=== PATIENT | female | born 1935 | race Caucasian/White ===

== ENCOUNTER 2023-02-24 13:00 | Outpatient (RCR) | payer MEDICARE, BC, SELFPAY | END 2023-06-17 23:59 | disposition home or self-care (01) | PROVIDERS: PCP Family Medicine; Visit Provider Family Medicine | DX: R41.82 Altered mental status, unspecified (principal); Z51.89 Encounter for other specified aftercare | CPT/HCPCS: 97165; 97535 ==

== ENCOUNTER 2024-02-16 05:16 | Emergency (ER) | payer MEDICARE, BC, SELFPAY ==
[2024-02-16] VITALS (19 sets, daily range): BP systolic 150–171; BP diastolic 71–103; PULSE 66–86; RESP 16; TEMP 35.9; O2SAT 93–97; BMI 25.8
--- NOTE | 2024-02-16 05:44 | XR_ITS ---
Patient: GIOVANY STONE Facility:?[facility] Patient ID:?[id number] Site Patient ID:?[id number]. Site :?[id number] Study:?XRay-Chest PA AND LATERAL-02/16/2024 6:28:48 AM Ordering Physician:rose Final Report: INDICATION: : Left posterior chest pain TECHNIQUE: PA and lateral 2 view chest COMPARISON: None FINDINGS: Lung volumes are good. No focal or diffuse opacities. No pleural effusion. No pneumothorax. Heart size is normal. Atherosclerotic calcifications of the thoracic aorta. Normal upper mediastinal contours. Degenerative changes of the spine commensurate with age. IMPRESSION: Lungs clear. Atherosclerotic vascular calcifications. Dictated by Rianna De La Paz MD @ 02/16/2024 6:44:17 AM Signed by:?Rianna De La Paz MD @02/16/2024 6:44:17 AM (Electronic Signature)
--- NOTE | 2024-02-16 05:54 | ED_ITS ---
HPI - General Adult General Chief complaint: Back Injury/Pain Stated complaint: L side chest / back pain Time Seen by Provider: 02/16/24 05:32 Source: patient and family Mode of arrival: ambulatory History of Present Illness HPI narrative: 88-year-old female presents to the emergency department with spouse. She has had pain in the left posterior lower rib area for the past couple of nights intermittently, radiating down to the lower back a little bit today. reporting that once she said it wrapped around to the front of the chest but she denies that today. It is not accompanied by shortness of breath. They have both had a nonproductive cough for the last couple of days but no fever. No pertinent travel. She has not tried any medication to help with her symptoms. She denies any history of cardiac problems, coronary artery disease, AFib or prior interventions. Has not tried any pain medication to help with her symptoms. No abdominal pain, nausea or bloody stools. No dysuria. No rash. Cannot think of any alleviating or exacerbating factors. Intermittent pain. Rates as a 6/10. Past medical history notable for type 2 diabetes, hypertension, hyperlipidemia. Only home medications are losartan metformin and simvastatin. No recent changes. Nonsmoker, no pertinent travel. ROS notable for the back pain as stated above only, otherwise denies times 12 systems. Related Data Home Medications Medication Instructions Recorded Confirmed calcium carbonate 600 mg-vitamin cap PO 02/16/24 D3 5 mcg (200 unit) capsule (Calcium 600 + D(3)) losartan 50 mg tablet 50 mg PO DAILY 02/16/24 02/16/24 metformin 500 mg tablet,extended 500 mg PO DAILY 02/16/24 02/16/24 release 24 hr simvastatin 40 mg tablet 40 mg PO QPM 02/16/24 02/16/24 Previous Rx's Medication Instructions Recorded tramadol 50 mg tablet 50 mg PO BID PRN pain #10 tabs 02/16/24 Allergies Allergy/AdvReac Type Severity Reaction Status Date / Time Sulfa (Sulfonamide Allergy Verified 02/16/24 05:29 Antibiotics) PFSH [facility] Social History Smoking Status: Unknown if ever smoked Exam Const: Vital Signs, click to edit/add: Vital Signs - 24 hr 02/16/24 05:24 02/16/24 05:28 02/16/24 05:29 Temperature 96.6 F L Pulse Rate 75 73 Pulse Rate [Pulse Oximeter] 80 Respiratory Rate 16 Blood Pressure 171/91 H Blood Pressure [Le ft Upper Arm] 171/91 H Pulse Oximetry 93 93 95 Oxygen Delivery Me thod Room Air Room Air 02/16/24 05:30 02/16/24 05:32 02/16/24 05:45 Temperature Pulse Rate 75 86 77 Pulse Rate [Pulse Oximeter] Respiratory Rate Blood Pressure 167/97 H Blood Pressure [Le ft Upper Arm] Pulse Oximetry 94 93 95 Oxygen Delivery Me thod 02/16/24 06:10 02/16/24 06:15 02/16/24 06:30 Temperature Pulse Rate 86 79 76 Pulse Rate [Pulse Oximeter] Respiratory Rate Blood Pressure Blood Pressure [Le ft Upper Arm] Pulse Oximetry 95 93 93 Oxygen Delivery Me thod 02/16/24 06:32 02/16/24 06:45 02/16/24 07:00 Temperature Pulse Rate 82 71 68 Pulse Rate [Pulse Oximeter] Respiratory Rate Blood Pressure 150/103 H Blood Pressure [Le ft Upper Arm] Pulse Oximetry 94 95 95 Oxygen Delivery Me thod 02/16/24 07:02 02/16/24 07:03 02/16/24 07:15 Temperature Pulse Rate 68 77 74 Pulse Rate [Pulse Oximeter] Respiratory Rate Blood Pressure 161/76 H Blood Pressure [Le ft Upper Arm] Pulse Oximetry 97 95 96 Oxygen Delivery Me thod Room Air 02/16/24 07:30 02/16/24 07:32 Temperature Pulse Rate 66 81 Pulse Rate [Pulse Oximeter] Respiratory Rate Blood Pressure 161/71 H Blood Pressure [Le ft Upper Arm] Pulse Oximetry 95 93 Oxygen Delivery Me thod Documenting provider has reviewed patient's vital signs: yes Common normals: alert General appearance: well kempt Other: Friendly and cooperative, calm. Moderate historian. Does seem reliable to answer her own questions. Has been very attentive, but does try to answer all of her questions for her. HENMT: Common normals: normocephalic and oropharynx normal Head and scalp: normocephalic Face and sinus: normal facial exam Mouth: oral and palatal mucosa normal Throat: posterior oropharynx normal Eye: Common normals: conjunctivae normal General eye: normal appearance of both eyes Conjunctiva: conjunctiva(e) normal Neck & C-Spine: Common normals: full ROM and no lymphadenopathy General: normal visual inspection Chest: Common normals: inspection of chest normal Resp: Common normals: normal respiratory effort and clear to auscultation bilaterally Effort & inspection: able to speak in complete sentences Auscultation: clear to auscultation bilaterally Other: Posterior ribs without palpable abnormality, bruising or trauma. There is a 2 cm subcutaneous mass very consistent with a sebaceous cyst, noninflamed on the 11th rib left side. It is not the source of her pain. Cardio: Other: Irregular. 2/6 systolic murmur noted. GI: Common normals: Normal to inspection, nondistended, normoactive bowel sounds present, soft to palpation, non-tender, no hepatosplenomegaly and no masses Palpation: soft and no hepatosplenomegaly : Common normals: no CVA tenderness Bladder/kidney exam: no CVA tenderness Back & Pelvis: Common normals: no CVA tenderness Other: Moderate kyphosis but no point bony tenderness to the thoracic or lumbar spine. No rash. Extremity: Common normals: normal to inspection, normal capillary refill and no pedal edema Neuro: Sensorium/orientation: alert Speech: speech normal Gait (neuro): normal gait Motor exam: strength 5/5 throughout and no movement abnormalities noted Other: Very strong for age. Psych: Appearance: well kempt Attitude: engaged Mood and affect: euthymic mood Other: Does seem to be some mild cognitive impairment but reliable for questions regarding current health status. Skin: Common normals: no rashes or lesions noted General skin exam: no rashes or lesions noted Course Course ED Course: Left-sided posterior rib pain with questionable radiation to the chest verses lower back. Differential diagnosis includes pyelonephritis, kidney stone, cardiac issue, pulmonary embolism, pneumonia, pleurisy, musculoskeletal issues like compression fracture, radiculopathy, rib sprain from cough, pancreatitis, intra-abdominal pathology, amongst others. She does seem to have some mild cognitive impairment and the history does not seem fully reliable in the last few days but she does seem like she can relate her pain and her current symptoms accurately. Will order EKG, alarm security or surveillance monitor, labs to investigate all studies as above. I do have some concerns with her regular heart rate if this is AFib versus a different arrhythmia. Will administer oral Tylenol and await results. Reevaluation(s) Time of Reevaluation #1: 06:45 Reevaluation #1: Patient informed of positive RSV status. This is likely the source of her cough, may also be contributing to some pleurisy that is the source of her pain. I also discussed that I think her pain could highly likely be from some anterior mild compression fractures of her thoracic spine. There do not seem to be any that would benefit from intervention or further imaging as she does not have point bony tenderness nor any evidence that any of these lesions are greater than 30% on x-ray. She is having sharp pain again, will give 5 mg of oxycodone in addition to the previously given Tylenol. She is mildly dehydrated, will give a 0.5 L of normal saline. Her cardiac exam and labs as well as her x-ray are very reassuring. I do not think this sinus arrhythmia in an 88-year-old asymptomatic patient warrants further workup. She is understanding of my explanation for this. We discussed pain control and symptom management as well as potential alarm symptoms associated with the RSV. Would recommend Tylenol arthritis twice daily for pain control then progressing to 400 of ibuprofen up to twice daily. I will give a small amount of tramadol for severe pain and have instructed her on melatonin and or Tylenol p.m. at bedtime if she is in need of a sleep aid. Hemoptysis, severe shortness of breath or loss of function would certainly warrant repeat ED presentation. She verbalizes understanding and agreement. Allan repeat trope pending in about 10 minutes, I assume that this will also be negative. If so, she will be discharged with the instructions as above. Reevaluation #2: Second troponin negative, as expected. No changes to plan of care as outlined above. Vital Signs Vital signs: Initial Vital Signs Temperature 96.6 F L 02/16/24 05:24 Temperature Source Temporal Artery Scan 02/16/24 05:24 Pulse Rate 80 02/16/24 05:24 Respiratory Rate 16 02/16/24 05:24 Blood Pressure 171/91 H 02/16/24 05:24 Blood Pressure Mean 117 H 02/16/24 05:24 Blood Pressure Position Supine 02/16/24 05:24 Pulse Oximetry 93 02/16/24 05:24 Oxygen Delivery Method Room Air 02/16/24 05:24 Vital Signs Temperature 96.6 F L 02/16/24 05:24 Pulse Rate 80 02/16/24 05:24 Respiratory Rate 16 02/16/24 05:24 Blood Pressure 171/91 H 02/16/24 05:24 Pulse Oximetry 93 02/16/24 05:24 Oxygen Delivery Method Room Air 02/16/24 05:24 Temperature 96.6 F L 02/16/24 05:24 Pulse Rate 81 02/16/24 07:32 Respiratory Rate 16 02/16/24 05:24 Blood Pressure 161/71 H 02/16/24 07:32 Pulse Oximetry 93 02/16/24 07:32 Oxygen Delivery Method Room Air 02/16/24 07:03 Medications Administered Medications: Discontinued Medications Generic Name Dose Route Start Last Admin Trade Name Linda PRN Reason Stop Dose Admin Acetaminophen 650 mg 02/16/24 06:01 02/16/24 06:24 Acetaminophen 325 Mg Tablet PO 02/16/24 06:02 650 mg ONCE ONE Administration Sodium Chloride 500 mls @ 500 mls/hr 02/16/24 06:46 02/16/24 06:56 0.9 % Sodium Chloride 500 Ml IV 02/16/24 07:45 500 mls/hr .Q1H ONE Administration Oxycodone HCl 5 mg 02/16/24 06:47 02/16/24 06:56 Oxycodone 5 Mg Tablet PO 02/16/24 06:48 5 mg ONCE ONE Administration Medical Decision Making Lab Data Lab results reviewed: Yes I reviewed the patient's lab results Lab results narrative: Labs reassuring. A little bit of dehydration noted and positive for RSV. Labs: Lab Results 02/16/24 02/16/24 02/16/24 Range/Units 05:48 05:50 06:00 WBC 7.50 (4.50-11.00) K/uL RBC 4.54 (4.00-5.20) m/uL Hgb 14.4 (12.0-16.0) gm/dL Hct 42.9 (33.0-51.0) % MCV 95 (80-100) fL MCH 32 (26-34) pg MCHC 34 (32-36) gm/dL RDW Coeff of Stacy 12.0 (11.5-15.5) % Plt Count 158 (140-440) K/uL Neut % (Auto) 51.8 (42.0-72.0) % Lymph % (Auto) 36.5 (20-44) % [place] % (Auto) 8.9 (0.0-11.0) % Eos % (Auto) 2.1 (0.0-7.0) % Baso % (Auto) 0.3 (0.0-3.0) % Neut # (Auto) 3.88 (1.7-7.0) K/uL Lymph # (Auto) 2.74 (0.90-2.90) K/uL [place] # (Auto) 0.70 (0.00-0.90) K/UL Eos # (Auto) 0.16 (0.00-0.50) K/uL Baso # (Auto) 0.02 (0.00-0.30) K/uL Abs Immat Gran (auto) 0.03 (0.00-0.30) K/uL Imm/Tot Granulo (auto) 0.4 % D-Dimer Quant (PE/DVT) 0.48 (0.00-0.50) ug/ml Sodium 142 (135-149) mmol/L Potassium 4.2 (3.6-5.1) mmol/L Chloride 105 (96-114) mmol/L Carbon Dioxide 31 (20-32) mmol/L Anion Gap 6 L (7-15) mEq/L BUN 34 H (7-30) mg/dL Creatinine 0.8 (0.5-1.5) mg/dL Estimated Creat Clear 37.82 Estimated GFR 71 ml/min Glucose 136 H (60-115) mg/dL Calcium 10.3 (8.4-10.6) mg/dL Total Bilirubin 0.6 (0.1-1.5) mg/dL AST 29 (12-35) U/L ALT 18 (4-35) U/L Alkaline Phosphatase 78 (40-150) U/L Troponin I < 0.01 L (0.01-0.04) ng/mL C-Reactive Protein < 0.5 L (0.5-1.0) mg/dL NT-Pro-B Natriuret Pep 121 pg/mL Total Protein 7.6 (6.0-8.3) g/dL Albumin 4.6 (3.3-5.0) g/dL Lipase 86 (23-300) U/L Urine Color Yellow (Yellow) Urine Appearance Clear (Clear) Urine pH 5.5 (5.0-8.5) Ur Specific [place] >= 1.030 (1.000-1.030) Urine Protein Negative (Negative) Urine Glucose (UA) Negative (Negative) Urine Ketones Negative (Negative) Urine Blood Trace-intact A (Negative) Urine Nitrite Negative (Negative) Urine Bilirubin Negative (Negative) Urine Urobilinogen 0.2 (0.2-1.0) Ur Leukocyte Esterase Trace A (Negative) Urine RBC 2-5 A (0-2) Urine WBC 5-10 A (0-5) Ur Squamous Epith Cells Few (None-Few) Urine Bacteria Few A (None) Urine Mucus Few A (None) SARS-CoV-2 (PCR) Negative SARS-CoV-2 (Negative) Influenza Type A (PCR) Negative PCR FLU A (Negative) Influenza Type B (PCR) Negative PCR FLU B (Negative) RSV (PCR) POSITIVE PCR RSV A (Negative) POC Troponin I 0.00 L (0.01-0.04) ng/ml 02/16/24 Range/Units 07:32 WBC (4.50-11.00) K/uL RBC (4.00-5.20) m/uL Hgb (12.0-16.0) gm/dL Hct (33.0-51.0) % MCV (80-100) fL MCH (26-34) pg MCHC (32-36) gm/dL RDW Coeff of Stacy (11.5-15.5) % Plt Count (140-440) K/uL Neut % (Auto) (42.0-72.0) % Lymph % (Auto) (20-44) % [place] % (Auto) (0.0-11.0) % Eos % (Auto) (0.0-7.0) % Baso % (Auto) (0.0-3.0) % Neut # (Auto) (1.7-7.0) K/uL Lymph # (Auto) (0.90-2.90) K/uL [place] # (Auto) (0.00-0.90) K/UL Eos # (Auto) (0.00-0.50) K/uL Baso # (Auto) (0.00-0.30) K/uL Abs Immat Gran (auto) (0.00-0.30) K/uL Imm/Tot Granulo (auto) % D-Dimer Quant (PE/DVT) (0.00-0.50) ug/ml Sodium (135-149) mmol/L Potassium (3.6-5.1) mmol/L Chloride (96-114) mmol/L Carbon Dioxide (20-32) mmol/L Anion Gap (7-15) mEq/L BUN (7-30) mg/dL Creatinine (0.5-1.5) mg/dL Estimated Creat Clear Estimated GFR ml/min Glucose (60-115) mg/dL Calcium (8.4-10.6) mg/dL Total Bilirubin (0.1-1.5) mg/dL AST (12-35) U/L ALT (4-35) U/L Alkaline Phosphatase (40-150) U/L Troponin I (0.01-0.04) ng/mL C-Reactive Protein (0.5-1.0) mg/dL NT-Pro-B Natriuret Pep pg/mL Total Protein (6.0-8.3) g/dL Albumin (3.3-5.0) g/dL Lipase (23-300) U/L Urine Color (Yellow) Urine Appearance (Clear) Urine pH (5.0-8.5) Ur Specific [place] (1.000-1.030) Urine Protein (Negative) Urine Glucose (UA) (Negative) Urine Ketones (Negative) Urine Blood (Negative) Urine Nitrite (Negative) Urine Bilirubin (Negative) Urine Urobilinogen (0.2-1.0) Ur Leukocyte Esterase (Negative) Urine RBC (0-2) Urine WBC (0-5) Ur Squamous Epith Cells (None-Few) Urine Bacteria (None) Urine Mucus (None) SARS-CoV-2 (PCR) (Negative) Influenza Type A (PCR) (Negative) Influenza Type B (PCR) (Negative) RSV (PCR) (Negative) POC Troponin I 0.01 (0.01-0.04) ng/ml Imaging Data Chest x-ray: Attestation: I have reviewed the pertinent imaging results. My impression: Kyphosis but lungs clear, no heart enlargement, infiltrates or effusions. Osteopenia and some anterior wedging of the thoracic spine Radiologist's impression: IMPRESSION: Lungs clear. Atherosclerotic vascular calcifications. ECG Data Attestation: I personally reviewed and interpreted this ECG as follows: Prior ECG tracings: not available for review Interpretation: Irregular rhythm but does seem to have a P-wave for every QRS, so sinus arrhythmia. [place] does seem normal. RI interval is prolonged. Subtle changes in the inferior leads are nondiagnostic. No obvious acute ischemia. Discharge Plan Discharge Clinical Impression: Thoracic compression fracture, Respiratory syncytial virus (RSV), Pleurisy Patient Disposition: Home w/ Parent or Adult Condition: Improved Instructions: Pleurisy (DC) Additional Instructions: As we discussed, I suspect that your chest wall pain is from pleurisy, and inflammation of the lining of the lungs from the RSV virus. Your swabs were positive for this. This virus tends to last about 3 weeks and causes cough and occasionally high fever. As discussed, your pain certainly could be from thinning of the bones in your back and a small compression fracture. I do see some evidence of this on x-ray. Since any possible compression is very small, and you do not have point bony tenderness, there is no intervention needed at this time. The best thing that you can do to prevent complications from either scenario is to stay active and to continue to stay hydrated and get good nutrition. For pain, I recommend Tylenol arthritis 2 tablets twice daily, try to get these as close to 12 hours apart as is convenient. If the pain is still bothersome, take 400 mg of ibuprofen up to 3 times daily. For sleep, remember that you can use melatonin 10 mg at bedtime and or other sleep aids like Tylenol p.m. or Unisom. I will also give you a small supply of tramadol, a stronger pain medicine to use if the above interventions are not working. Try to use this sparingly and try all of the other means 1st. If you have any severe worsening, shortness of breath, coughing up blood, severe weakness or persistent high fever, you should come back to the emergency room. Activity Level: Activity as Tolerated Discharge Diet: Regular Prescriptions: New tramadol 50 mg tablet 50 mg PO BID PRN (Reason: pain) Qty: 10 0RF Rx Instructions: For severe pain not relieved by Tylenol or ibuprofen No Action losartan 50 mg tablet 50 mg PO DAILY simvastatin 40 mg tablet 40 mg PO QPM metformin 500 mg tablet extended release 24 hr 500 mg PO DAILY Calcium 600 + D(3) 600 mg-5 mcg (200 unit) capsule PO Follow Up/Referrals: Aura Suarez MD [Primary Care Provider] - Stand Alone Forms: [place] Info Instructions
[2024-02-16 06:11] LABS: Red Blood Count 4.54 m/uL (4.00-5.20)
[2024-02-16 06:12] LABS: Basophils Absolute Auto 0.02 K/uL (0.00-0.30); Basophils Percent Auto 0.3 % (0.0-3.0); Eosinophils Absolute Auto 0.16 K/uL (0.00-0.50); Eosinophils Percent Auto 2.1 % (0.0-7.0); Hematocrit 42.9 % (33.0-51.0); Hemoglobin* 14.4 gm/dL (12.0-16.0); Immature Granulocytes Abs Auto 0.03 K/uL (0.00-0.30); Immature Granulocytes Pct Auto 0.4 %; Lymphocytes Absolute Auto 2.74 K/uL (0.90-2.90); Lymphocytes Percent Auto 36.5 % (20-44); Mean Corpuscular HGB Conc 34 gm/dL (32-36); Mean Corpuscular Hemoglobin 32 pg (26-34); Mean Corpuscular Volume 95 fL (80-100); Monocytes Percent Auto 8.9 % (0.0-11.0); Neutrophils Absolute Auto 3.88 K/uL (1.7-7.0); Neutrophils Percent Auto 51.8 % (42.0-72.0); Platelet Count* 158 K/uL (140-440)
[2024-02-16 06:14] LABS: Slide Review Reflex No
[2024-02-16 06:19] LABS: Albumin* 4.6 g/dL (3.3-5.0); Chloride* 105 mmol/L (96-114); Potassium* 4.2 mmol/L (3.6-5.1); Sodium* 142 mmol/L (135-149)
[2024-02-16 06:21] LABS: Bilirubin Total* 0.6 mg/dL (0.1-1.5); Creatinine* 0.8 mg/dL (0.5-1.5); Est. Creatinine Clearance* 37.82; Estimated Glomerular Filt Rate 71 ml/min
[2024-02-16 06:21] LABS: Appearance Urine Clear (Clear); Bilirubin Urine Negative (Negative); Blood Urine Trace-intact (Negative); Color Urine Yellow (Yellow); Glucose Urine Negative (Negative); Ketones Urine Negative (Negative); Specific Gravity Urine >= 1.030 (1.000-1.030)
[2024-02-16 06:22] LABS: Alanine Aminotransferase* 18 U/L (4-35); Alkaline Phosphatase* 78 U/L (40-150); Anion Gap 6 mEq/L (7-15); Aspartate Amino Transferase* 29 U/L (12-35); Blood Urea Nitrogen* 34 mg/dL (7-30); Carbon Dioxide* 31 mmol/L (20-32); Glucose* 136 mg/dL (60-115); Lipase* 86 U/L (23-300); Total Protein* 7.6 g/dL (6.0-8.3)
[2024-02-16 06:22] LABS: Leukocyte Esterase Urine Trace (Negative); Nitrite Urine Negative (Negative); Protein Urine Negative (Negative); Urobilinogen Urine 0.2 (0.2-1.0); pH Urine 5.5 (5.0-8.5)
[2024-02-16 06:23] LABS: Bacteria Urine Few; Mucus Urine Few; Squamous Epithelial Cell Urine Few (None-Few)
[2024-02-16 06:23] LABS: Calcium* 10.3 mg/dL (8.4-10.6)
[2024-02-16] MEDS: ACETAMINOPHEN 325 MG TABLET 650 MG PO (06:24)
[2024-02-16 06:26] LABS: C Reactive Protein* < 0.5 mg/dL (0.5-1.0); D Dimer Quantitative* 0.48 ug/ml (0.00-0.50)
[2024-02-16 06:33] LABS: NT Pro B Type NatriureticPept* 121 pg/mL
[2024-02-16 06:35] LABS: Troponin I* < 0.01 ng/mL (0.01-0.04)
[2024-02-16] MEDS: OXYCODONE 5 MG TABLET PO (06:56)
[2024-02-16] MEDS: 0.9 % SODIUM CHLORIDE 500 ML 500 ML IV (06:56)
[2024-02-16 07:05] LABS: PCR FLU A Negative PCR FLU A (Negative); PCR FLU B Negative PCR FLU B (Negative); PCR RSV POSITIVE PCR RSV (Negative); SARS PCR* Negative SARS-CoV-2 (Negative)
[2024-02-16 07:46] LABS: Troponin, Point-of-Care* 0.01 ng/ml (0.01-0.04)
== END 2024-02-16 08:09 | disposition home or self-care (01) ==
PROVIDERS: Emergency Provider Family Medicine; PCP Family Medicine
DX: M48.54XA Collapsed vertebra, not elsewhere classified, thoracic region, initial encounter for fracture (principal); R09.1 Pleurisy; B97.4 Respiratory syncytial virus as the cause of diseases classified elsewhere
CPT/HCPCS: 36415; 71046; 80053; 81001; 81003; 83690; 83880; 84484; 85025; 85379; 86140; 87086; 87631; 93005; 96360; 99284; 99285; A9270; J7030